=== PATIENT | female | born 1930 | race Caucasian/White ===

== ENCOUNTER 2017-04-13 16:32 | Inpatient (IN) | payer OTHER, MEDICARE ==
--- NOTE | 2017-04-13 16:53 | ED Physician Chart ---
ED Chief Complaint/HPI - Patient Information Date Seen:: 04/13/17 Time Seen:: 16:40 Chief Complaint:: Paresthesias History of Present Illness:: onset x one day of right arm numbness, weakness, paresthesias, and pain; pt denies H/As, neck pain, C/P, SOB, Abd. Pain, A/N/V/D/C, fever, chills, or urinary s/s Allergies:: Allergies Allergy/AdvReac Type Severity Reaction Status Date / Time No Known Allergies Allergy Verified 04/13/17 16:39 Vitals:: Vital Signs - 8 hr 04/13/17 16:41 Temp 98.4 F HR 82 RR 16 BP 167/66 O2 Sat % 97 Historian:: Patient, Family Member Review:: Nurse's Note Reviewed ED Review of Systems - Review of Systems General/Constitutional: No fever, No chills, No weight loss, No weakness, No diaphoresis, No edema, No loss of appetite Skin: No skin lesions, No rash, No bruising Head: No headache, No light-headedness Eyes: No loss of vision, No pain, No diplopia ENT: No earache, No nasal drainage, No sore throat, No tinnitus Neck: No neck pain, No swelling, No thyromegaly, No stiffness, No mass noted Cardio Vascular: No chest pain, No palpitations, No PND, No orthopnea, No edema Pulmonary: No SOB, No cough, No sputum, No wheezing GI: No nausea, No vomiting, No diarrhea, No pain, No melena, No hematochezia, No constipation, No hematemesis G/U: No dysuria, No frequency, No hematuria Musculoskeletal: No bone or joint pain, No back pain, No muscle pain Endocrine: No polyuria, No polydipsia Psychiatric: No prior psych history, No depression, No anxiety, No suicidal ideation Hematopoietic: No bruising, No lymphadenopathy Allergic/Immuno: No urticaria, No angioedema Neurological: No syncope, Focal symptoms, Weakness, Paresthesia, Headache, No seizure, Dizziness, No confusion, Vertigo ED Past Medical History - Past Medical History Obtainable: Yes Past Medical History: HTN Family History: Diabetes Melitus, HTN Social History: Smoker, No Alcohol, No Drug Use Surgical History: None Psychiatricy History: None Medication: Reviewed Family Medical History - Family Member Daughter Ethnicity: Hx Family Cancer: No Hx Family Coronary Artery Disease: No Hx Family Congestive Heart Failure: No Hx Family Stroke: No Hx Family Diabetes: No Hx Family Dementia: No Hx Family AIDS: No Hx Family COPD: No ED Physical Exam - Physical Examination General/Constitutional: Awake, Well-developed, well-nourished, Alert, No distress, GCS 15, Non-toxic appearing, Ambulatory Head: Atraumatic Eyes: Lids, conjuctiva normal, PERRL, EOMI Skin: Nl inspection, No rash, No skin lesions, No ecchymosis, Well hydrated, No lymphadenopathy ENMT: External ears, nose nl, Nasal exam nl, Lips, teeth, gums nl Neck: Nontender, Full ROM w/o pain, No JVD, No nuchal rigidity, No bruit, No mass, No stridor Respiratory: Nl effort/Exclusion, Clear to Auscultation, No Wheeze/Rhonchi/Rales Cardio Vascular: RRR, No murmur, gallop, rubs, NL S1 S2 GI: No tenderness/rebounding/guarding, No organomegaly, No hernia, Normal BS's, Nondistended, No mass/bruits, No McBurney tenderness : No CVA tenderness Extremities: No tenderness or effusion, Full ROM, normal strength in all extremities, No edema, Normal digits & nails Neuro/Psych: Alert/oriented, DTR's symmetric, Judgement/insight normal, Mood normal, Normal gait, No focal deficits Other Neuro/Psych comments:: + decreased motor and sensory functions of the RUE Misc: normal gait, Normal back, No paraspinal tenderness ED Labs/Radiology/EKG Results - Lab Results Comments:: WBC: 11.8; Na+: 132; - Radiology Results Results: + Ischemic changes - EKG Interpretations Rate & Rhythm: 63; NSR Comments:: non-specific st-t changes ED Septic Shock - . Is Septic Shock (SBP<90, OR Lactate>4 mmol\L) present?: No - <6hrs of presentation: Vital Signs: Vital Signs - 8 hr 04/13/17 16:41 Temp 98.4 F HR 82 RR 16 BP 167/66 O2 Sat % 97 ED Reassessment (Disposition) - Reassessment Reassessment Condition:: Improved - Diagnosis Diagnosis:: Dx: CVA; TIA; Hyponatremia; Leukocytosis - Aftercare/Follow up Instructions Aftercare/Follow-Up Instructions:: Counseled pt regarding lab results/diagnosis & need follow up, Counseled pt & family regarding lab results/diagnosis & need follow up - Patient Disposition Discharge/Transfer:: Acute Care w/in this hosp Accepting Physician:: Dr. Golden Time Called:: 1929 Time Responded:: 19:45 Admitted to:: Telemetry Spoke to:: Admitting Medical Physician:: Dr. Golden Condition at Disposition:: Stable, Improved
[2017-04-13 17:05] LABS: % BASOPHILS 1.9 % (0.0-2.0); % EOSINOPHILS 2.4 % (0.0-5.0); % LYMPHOCYTES 20.3 % (20.0-50.0); % MONOCYTES 5.5 % (2.0-10.0); % NEUTROPHILS 69.9 % (40.0-80.0); HEMATOCRIT 34.8 % (41.0-60); HEMOGLOBIN 11.9 gm/dL (12-16); MEAN CELL VOLUME 88.3 fl (81-100); MEAN CORPUSCULAR HEMOGLOBIN 30.1 pg (27.0-31.0); MEAN CORPUSCULAR HGB CONC 34.1 pg (28.0-36.0); MEAN PLATELET VOLUME 7.2 fl; NEUTROPHILE ABSOLUTE 7.9 Th/cmm (1.8-8.0); PLATELET COUNT 317 Th/cmm (150-400); RED BLOOD COUNT 3.94 Mil/cmm (3.80-5.20); RED CELL DISTRIBUTION WIDTH 12.5 % (11.5-20.0); WHITE BLOOD COUNT 11.3 Th/cmm (4.8-10.8)
[2017-04-13 17:24] LABS: INR 0.91 (0.5-1.4); PROTHROMBIN TIME (TEST) 9.5 SECONDS (9.5-11.5)
[2017-04-13 17:32] LABS: ALB/GLOB RATIO 1.2 (1.0-1.8); ALKALINE PHOSPHATASE 68 U/L (34-104); ANION GAP 8.7 (7.0-16.0); BILIRUBIN,TOTAL 0.5 mg/dL (0.3-1.0); BUN - UREA NITROGEN 14 mg/dL (7-25); BUN/CREATININE RATIO 17.5; CALCIUM SERUM 9.2 mg/dL (8.6-10.3); CHLORIDE 99 mEq/L (98-107); CHOLESTEROL 153 mg/dL (<200); CREATININE - SERUM 0.8 mg/dL (0.6-1.2); GLUCOSE 97 mg/dL (70-105); POTASSIUM SERUM 3.7 mEq/L (3.5-5.1); SGOT 14 U/L (13-39); SGPT/ALT 9 U/L (7-52); SODIUM SERUM 132 mEq/L (136-145); TRIGLYCERIDES 97 mg/dL (<150)
[2017-04-14 02:34] VITALS: BP 197/79
[2017-04-14 05:57] LABS: % BASOPHILS 0.5 % (0.0-2.0); % LYMPHOCYTES 26.3 % (20.0-50.0); % MONOCYTES 7.9 % (2.0-10.0); % NEUTROPHILS 61.3 % (40.0-80.0); HEMATOCRIT 36.1 % (41.0-60); HEMOGLOBIN 11.9 gm/dL (12-16); MEAN CORPUSCULAR HEMOGLOBIN 29.3 pg (27.0-31.0); MEAN CORPUSCULAR HGB CONC 32.9 pg (28.0-36.0); MEAN PLATELET VOLUME 7.6 fl; NEUTROPHILE ABSOLUTE 5.3 Th/cmm (1.8-8.0); PLATELET COUNT 320 Th/cmm (150-400); RED BLOOD COUNT 4.06 Mil/cmm (3.80-5.20); RED CELL DISTRIBUTION WIDTH 12.6 % (11.5-20.0)
[2017-04-14 06:13] LABS: WHITE BLOOD COUNT 8.6 Th/cmm (4.8-10.8)
[2017-04-14 06:22] LABS: ALB/GLOB RATIO 1.1 (1.0-1.8); ALKALINE PHOSPHATASE 65 U/L (34-104); ANION GAP 7.9 (7.0-16.0); BILIRUBIN,TOTAL 0.5 mg/dL (0.3-1.0); BUN - UREA NITROGEN 16 mg/dL (7-25); CARBON DIOXIDE 28.8 mEq/L (21.0-31.0); CHLORIDE 102 mEq/L (98-107); CREATININE - SERUM 0.8 mg/dL (0.6-1.2); GLUCOSE 97 mg/dL (70-105); POTASSIUM SERUM 3.7 mEq/L (3.5-5.1); SGOT 15 U/L (13-39); SGPT/ALT 8 U/L (7-52); SODIUM SERUM 135 mEq/L (136-145)
--- NOTE | 2017-04-14 08:03 | Diagnostic Imaging Report ---
CHEST X-RAY: AP view INDICATION: Stroke COMPARISON: None FINDINGS: Increased left basal lung markings are seen with slight nodularity. No definite effusions. Heart size is normal. Atherosclerosis noted. Degenerative changes of the spine are noted with scoliosis. IMPRESSION: Increased left basal lung markings with slight left basal modularity. Infiltrate or pulmonary nodule cannot be excluded. Recommend further assessment with CT of the chest. Atherosclerotic vascular disease.
--- NOTE | 2017-04-14 08:07 | Diagnostic Imaging Report ---
Head CT without intravenous contrast Indication: Stroke Comparison: None Technique: Axial images were obtained from the vertex to the skull base without IV contrast. Coronal reconstructions were made. Total DLP: 545, CTDI31.6 FINDINGS: Images of the brain obtained without contrast demonstrate no evidence of an acute hemorrhage. Atrophy is noted. Diffuse white matter disease is noted. The ventricles and basal cisterns are patent. No mass effect or midline shift. No evidence of a skull fracture or focal soft tissue swelling. The visualized paranasal sinuses are clear. IMPRESSION: No evidence of acute intracranial hemorrhage. Atrophy. Diffuse supratentorial white matter disease which is nonspecific and may be due to chronic microvessel ischemia. Given clinical history MRI follow-up may be obtained if indicated.
[2017-04-14] MEDS ORDERED: Non-Formulary Item 1 EA (Atenolol [Atenolol] 50 MG) PO SCH (09:00)
[2017-04-14] MEDS ORDERED: Atorvastatin Calcium 10 MG TAB PO SCH (09:00)
[2017-04-14] MEDS ORDERED: Aspirin 81mg Chewable Tab PO SCH (09:00)
[2017-04-14] MEDS ORDERED: IOHEXOL 300MG/ML 50 ML VIAL PO ONE (09:03)
--- NOTE | 2017-04-14 11:29 | Diagnostic Imaging Report ---
Head CT with intravenous contrast Indication: CVA Comparison: Head CT without contrast on 04/13/2017 Technique: Axial images were obtained from the vertex to the skull base following administration of IV contrast. Coronal reconstructions were made. Total DLP: 542, CTDI33 FINDINGS: Images of the brain obtained without contrast and straight no evidence of gross hemorrhage. Atrophy and diffuse supratentorial white matter disease is noted. No evidence of an enhancing mass lesion. The ventricles and basal cisterns are patent. No mass effect or midline shift. Atherosclerosis is noted. No evidence of a skull fracture or focal soft tissue swelling. The visualized paranasal sinuses are clear. IMPRESSION: No enhancing mass lesion identified. If there is continued clinical concern for stroke MRI is recommended for further assessment. Diffuse supratentorial white matter disease which is nonspecific and may be due to chronic microvessel ischemia. Atrophy. Atherosclerotic vascular disease.
--- NOTE | 2017-04-14 11:35 | History & Physical ---
ADMIT DATE: 04/14/2017 PATIENT IDENTIFICATION: An 87-year-old female. HISTORY SOURCE: Talking to the patient. She is an excellent historian and Emergency Room MD. HISTORY OF PRESENT ILLNESS: An 87-year-old [place] female with history of hypertension, hyperlipidemia, lives by herself in [facility], very independent, is followed by her commissioned police officer at [facility], brought in to the Emergency Room by the patient's daughter after the patient stated that yesterday morning when she woke up she was fine, but subsequently she was drinking coffee, she felt numbness on her right upper extremity and her coffee mug almost fell down. Her symptoms lasted for few hours and she called her daughter. She works at [employer], but lives in [place]. Her daughter picked her up on the way to home and brought her to the Emergency Room. When the patient arrived in the Emergency Room, the patient had a CT scan of the head which was unremarkable. In the view of her symptoms, the patient was advised to be admitted. The patient was not a candidate for TPA. PAST MEDICAL HISTORY: Remarkable for: 1. Hypertension. 2. Hyperlipidemia. 3. DJD. MEDICATIONS AT HOME: Atenolol, losartan, simvastatin, and trazodone. ALLERGIES: The patient is not allergic to medications. SOCIAL HISTORY: She lives by herself in [facility]. 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 The patient has no history of any alcohol use. FAMILY MEDICAL HISTORY: Remarkable for diabetes and hypertension. REVIEW OF SYSTEMS: The patient currently denies any headache, blurred vision, double vision, dysphagia, odynophagia, runny nose, stuffy nose, fever, chills, cough, chest pain, shortness of breath, palpitation, dizziness, nausea, vomiting, diarrhea, dysuria, hematuria, hematochezia, melena. No history of any seizure or syncopal episode. No weight loss or weight gain. No history of any dysphagia. PHYSICAL EXAMINATION: GENERAL: The patient is alert, awake, oriented, lying in the bed without any acute distress. VITAL SIGNS: Temperature 98.4, pulse is 82, respiratory rate 16, blood pressure 167/66. SKIN: Warm to touch. HEENT: Normocephalic, atraumatic. Extraocular muscles are intact. Tongue was pink and coated. Poor dentition noted. Multiple dental work noted. NECK: Supple, no JVD, no hepatojugular reflux. No lymphadenopathy, thyromegaly or carotid bruit. HEART: Both heart sounds are regular. No S3, no S4, no murmur. CHEST: Lung equal in expansion, no wheezing, no crackles. ABDOMEN: Soft. No guarding, no rigidity. Liver, spleen palpable. No palpable mass. EXTREMITIES: No edema, no cyanosis or clubbing. Peripheral pulses +2. No calf tenderness noted. NEUROLOGIC: Alert, awake, oriented to time, place, person, 2-12 cranial nerves are intact. Power in upper and lower extremities 5-. Sensation to touch is intact. Babinskis in both toes are going down. No cerebral sign. AVAILABLE DIAGNOSTIC DATA: White count of 11.3, hemoglobin 11.9, platelet count of 317. PT/INR is normal. BUN and creatinine is 14 and 0.8. Sodium 132, potassium 3.7, chloride 99, CO2 28.7. Troponin is less than 0.01. ALT and AST are normal. EKG, no ST-T changes representing acute ischemia. Chest x-ray is done in Emergency Room, which is remarkable for increased left basal marking with slight left basal nodularity consistent with infiltrate versus pulmonary nodule. CT scan of the chest has ____ changes, but no evidence of any tumor or stroke. CLINICAL IMPRESSION: 1. An 87-year-old female with history of hypertension, hyperlipidemia, presented to Emergency Room with acute onset of right upper extremity weakness and numbness, lasted for few hours, now has completely resolved. CT scan of the head without contrast unremarkable for any CVA changes, suspect the patient most likely have reversible ischemic neurological deficit, which has completely resolved. 2. Hypertension. 3. Hyperlipidemia. 4. Degenerative joint disease. 5. Insomnia. PLAN: 1. The patient is admitted to telemetry unit. 2. Proceed with CT scan of the head with contrast to assess neurological insult. 3. Neurology consult to assure the patient had a stroke versus reversible ischemic neurological deficits. 4. Aspirin 81 mg daily has been started since the patient was not taking aspirin. 5. Carotid ultrasound and 2D echocardiogram has been requested. 6. The patient's Neurology consultation will be requested. 7. Assessment will be done for physical therapy as well for safe discharge. 8. Resume her antihypertensive medication, as well as the statins. 9. Further recommendations of discharge planning to home based on this diagnostic once the diagnostic data are available. In the view of her abnormal chest x-ray, we will proceed with CT scan of the chest as well. I had discussed with patient and her assigned nurse about the treatment plan. All questions have been answered. JOB# [id number]
--- NOTE | 2017-04-14 11:35 | Diagnostic Imaging Report ---
CT Chest without IV contrast HISTORY: Nodule COMPARISON: Chest x-ray on 04/13/2017. Technique: Axial images were obtained from the base of the neck to the upper abdomen without IV contrast. Reconstructions were made. Total DLP to 47 CTD I 6 Findings: Evaluation of mediastinum is limited due to lack of IV contrast. No evidence of mediastinal lymphadenopathy. Heart size is normal. Diffuse atherosclerotic vascular disease is noted. The ascending aorta measures up to 2.9 cm. No pericardial effusion. Evaluation of the lungs demonstrates hyperinflated lungs. Scattered tree-in-bud nodular opacities are seen greatest within the lower lung zones. Areas of bronchiectasis are seen along the lingula and right middle lobe. There is also 1 cm right upper lobe focal airspace disease. Additional few patchy infiltrates are also noted. There is also 8-mm nodular infiltrate of the right lower lobe (image 84, series 3). No pleural effusions identified. The upper abdomen demonstrates 1.5 cm calcification which may be adjacent to the fundus of the stomach, possibly a calcified lymph node. There is evidence of prior cholecystectomy. There is a 2 cm cyst along the left lobe of the liver adjacent to the falciform ligament. Degenerative changes of the spine are noted with spinal scoliosis. IMPRESSION: Chronic lung changes with a few patchy infiltrates and airspace opacities including 1.1 cm airspace opacity of the right upper lobe and 7 mm nodule of the right lung base. Findings may be due to infectious or inflammatory process, however, neoplastic process cannot be completely excluded. Correlation with old exams would be helpful for comparison. In addition a follow-up chest CT in 3-4 months is recommended for further assessment/monitoring. Bilateral tree-in-bud infiltrates which may be due to previous infectious or inflammatory process. Areas of bronchiectasis and mild consolidative changes of the right middle lobe and lingular also noted. 2 cm cyst along the left lobe of the liver. Diffuse atherosclerotic vascular disease. Evidence of prior cholecystectomy. Degenerative changes of the spine with scoliosis.
--- NOTE | 2017-04-15 08:19 | Diagnostic Imaging Report ---
Carotid ultrasound HISTORY: CVA COMPARISON: None Technique: Longitudinal and transverse sonographic sector images of the carotid arteries were obtained with doppler analysis. FINDINGS: Exam of the right side demonstrates intimal thickening and mild generalized atherosclerotic vascular disease greatest at the carotid bulb.Slightly increased right ECA velocity of 127 cm/second is noted. Exam of the left side demonstrates intimal thickening and mild to moderate atherosclerotic vascular disease greatest at the carotid bulb. Areas of calcified plaque formation are seen bilaterally. Antegrade vertebral artery flow is demonstrated bilaterally. IMPRESSION: Mild to moderate generalized atherosclerotic vascular disease, left greater than right. No evidence of hemodynamically significant stenosis. Slight increased velocity of the right ECA possibly due to mild atherosclerosis and vessel tortuosity.
--- NOTE | 2017-04-15 15:21 | Cardiology ---
04/14/[address] Golden. M-MODE ECHOCARDIOGRAM: Mitral valve, anterior leaflet of mitral valve shows normal excursion, EF velocity. Posterior leaflet of mitral valve shows normal excursion. Left ventricular posterior wall shows increased thickness, normal excursion. Interventricular septum shows increased thickness, normal excursion, hypertrophy of the left ventricle, ejection fraction 60%. Left atrium normal. Aortic root shows normal dimension, normal excursion of aortic leaflets. CONCLUSION: Hypertrophy of the left ventricle, ejection fraction 60%. 2D ECHO: Long axis view showed normal sized left ventricle with hypertrophy of the left ventricle. Left atrium normal. Aortic root shows normal dimension, normal excursion of aortic leaflets. Short axis view of mitral valve normal. Short axis view of aortic valve normal. Apical four chamber view showed normal sized left ventricle, left atrium, right ventricle, right atrium, tricuspid and mitral valve, ejection fraction 60%. CONCLUSION: Hypertrophy of the left ventricle, ejection fraction 60%. Doppler study shows trace mitral regurgitation, trace tricuspid regurgitation, prominent A wave consistent with poor compliance of left ventricle. Right ventricular systolic pressure 41 vitamin mmHg. [facility]# [id number]
--- NOTE | 2017-04-21 13:16 | Discharge Summary ---
DATE OF DISCHARGE: 04/14/2017 PRINCIPAL DIAGNOSES: 1. Transient ischemic attack. 2. Hypertension. 3. Hyperlipidemia. 4. Degenerative joint disease. 5. Insomnia. 6. A 7 mm nodules in the right lung base, workup can be done as an outpatient. BRIEF STATEMENT FOR THE REASON FOR ADMISSION: This 87-year-old [place] female with longstanding history of hypertension, hyperlipidemia, presented to the Emergency Room for evaluation of right upper extremity numbness and weakness. The patient was worked up in the ER and subsequently admitted. Please refer to my dictated medical H and P for further information. HOSPITAL COURSE: The patient was admitted to telemetry unit. The patient had a CT scan of the head with and without contrast, which was negative for new CVA. Neurology consultation was also requested. Aspirin was ordered. Carotid ultrasound was negative for any hemodynamically significant stenosis. A 2D echocardiogram was done, which did not reveal any mural thrombi or any vegetation. The patient did have left ventricular hypertrophy with ejection fraction of 60%. The patient did not have any symptoms since the patient was in the hospital, the patient was back to normal. The patient did have abnormal chest x-ray. Based on the CT chest was done, which revealed 7 mm nodules in the right lung base, which was reported and I did discuss that it can have workup as an outpatient. Since the patient's symptoms were completely resolved, decision was made that the patient should be discharged to home. The patient was advised to continue her blood pressure medication as she was taking along with aspirin 81 mg 2 tablets daily. The patient was advised to see rad tech in 1 week and Neurology followup in 1 week. The patient's discharge instructions were discussed in length with the patient as well. JOB# [id number]
== END 2017-04-14 19:00 | disposition home or self-care (01) | DRG 69 ==
LOC: ER 16:32 → TELE 22:07
PROVIDERS: ADMIT Internal Medicine; ATTEND Internal Medicine
DX: G45.9 Transient cerebral ischemic attack, unspecified (principal); E87.1 Hypo-osmolality and hyponatremia; I10 Essential (primary) hypertension; M62.81 Muscle weakness (generalized); F17.210 Nicotine dependence, cigarettes, uncomplicated; D72.829 Elevated white blood cell count, unspecified; E78.5 Hyperlipidemia, unspecified; M19.90 Unspecified osteoarthritis, unspecified site; G47.00 Insomnia, unspecified; Z83.3 Family history of diabetes mellitus; Z82.49 Family history of ischemic heart disease and other diseases of the circulatory system; Z79.899 Other long term (current) drug therapy
CPT/HCPCS: 36415-UA; 70450-TC; 70460-TC; 71010-TC; 71250-TC; 80053-TC; 80061-TC; 82550-TC; 83880-TC; 84484-TC; 85025-TC; 85610-TC; 93005; 93307-TC; 93880-TC; 94760; Q9967